=== PATIENT | male | born 1985 | race African-American/Black ===

== ENCOUNTER 2020-04-10 00:38 | Day surgery (SDC) | payer OTHER, SELFPAY ==
[2019-08-29 16:21] VITALS: BMI 33.6
--- NOTE | 2019-09-04 17:11 | HP_ITS ---
DATE OF SERVICE: HISTORY: A 34-year-old is here for followup on his thyroid. He is a prisoner. He has a multinodular goiter, left greater than right. PHYSICAL EXAMINATION: HEENT: He has a large goiter, substernal extension to the thyroid gland, significant mass effect on the left lateral posterior aspect of the trachea. CHEST: Clear. HEART: Without murmurs. ABDOMEN: Soft. EXTREMITIES: Negative. PLAN: Thyroidectomy, left greater than right. D I MT: [facility]
--- NOTE | 2020-03-06 06:23 | PM.HPGS ---
History of Present Illness History of Present Illness Consent: Risks, benefits, and alternatives have been discussed and questions answered. Patient agrees to proceed with procedure. Chief complaint: Left Thyroid Mass Narrative: Karson Ma is a 34 year old male Review of Systems Review of Systems: Narrative: Patient has a thyroid goiter which needs to be excised easily explain all the risks pros and cons of the procedure All systems reviewed & are unremarkable except as noted in HPI and below ENT: Comments: Large thyroid goiter Meds Home Medications and Allergies Home Medications Medication Instructions Recorded Confirmed Type hydrochlorothiazide 25 mg PO DAILY 08/29/19 08/29/19 History lisinopril 20 mg PO DAILY 08/29/19 08/29/19 History timolol 1 drp LEFTEYE BID 08/29/19 08/29/19 History Allergies Allergy/AdvReac Type Severity Reaction Status Date / Time Sulfa (Sulfonamide Allergy Verified 08/29/19 16:23 Antibiotics) Assessment and Plan Additional Plan Plan is to remove the left thyroid he has been this plane all risks regarding her current laryngeal nerve weakness voice change hemorrhage in infection left thyroid goiter excision
--- NOTE | 2020-04-08 06:39 | PM.HPGS ---
History of Present Illness History of Present Illness Consent: Risks, benefits, and alternatives have been discussed and questions answered. Patient agrees to proceed with procedure. Chief complaint: Left Thyroid Mass Narrative: Karson Ma is a 34 year old male he has a large thyroid nodule left side admitted for elective excision he has been explained the risks regarding vocal change recurrent laryngeal nerve weakness Review of Systems Review of Systems: All systems reviewed & are unremarkable except as noted in HPI and below Meds Home Medications and Allergies Home Medications Medication Instructions Recorded Confirmed Type hydrochlorothiazide 25 mg PO DAILY 08/29/19 03/31/20 History lisinopril 20 mg PO DAILY 08/29/19 03/31/20 History timolol 1 drp LEFTEYE BID 08/29/19 03/31/20 History Allergies Allergy/AdvReac Type Severity Reaction Status Date / Time Sulfa (Sulfonamide Allergy Unknown Verified 04/01/20 09:26 Antibiotics) Assessment and Plan Additional Plan Plan is to do a left thyroidectomy
[2020-04-10] VITALS (8 sets, daily range): BP systolic 130–163; BP diastolic 61–93; PULSE 56–73; RESP 10–16; TEMP 36.1–36.3; O2SAT 96–100
--- NOTE | 2020-04-10 06:03 | WPDHPUPDATE1 ---
History and Physical Update Update Date/Time: 04/10/20 06:03 History and Physical has been reviewed, including an updated exam of the patient. There are NO changes in the patient's condition. Risks, benefits, and alternatives have been discussed and questions answered. Patient agrees to proceed with procedure.
[2020-04-10] MEDS: ACETAMINOPHEN 500 MG TABLET 1000 MG PO (08:00)
[2020-04-10] MEDS: LACTATED RINGERS 1,000 ML 30 ML IV CONT ×2 (08:00→10:08)
--- NOTE | 2020-04-10 08:13 | P.PNAN_ITS ---
Anes - Initial Pre Proc Eval Procedure: Operation Date: 09/06/19 10:30 Proposed Procedures p Left Thyroidectomy(Left) - Berry Sandoval MD Operation Date: 04/10/20 10:00 Proposed Procedures p Left Thyroidectomy - Berry Sandoval MD Date/Time: 04/10/20 08:13 Surgeon: Berry Sandoval MD Pre Op Diagnosis: Left Thyroid Mass Patient Data Age: 34 Gender: M Height: 6 ft Weight: 115 kg Allergies Allergy/AdvReac Type Severity Reaction Status Date / Time Sulfa (Sulfonamide Allergy Unknown Verified 04/01/20 09:26 Antibiotics) Home Medications Medication Instructions Recorded Confirmed Type hydrochlorothiazide 25 mg PO DAILY 08/29/19 03/31/20 History lisinopril 20 mg PO DAILY 08/29/19 03/31/20 History timolol 1 drp LEFTEYE BID 08/29/19 03/31/20 History Patient hx anesthesia problems: none Family hx anesthesia problems: none [facility] Past Medical History Medical History (Updated 04/10/20 @ 08:13 by Betito Hernández MD) HTN (hypertension) Overweight Surgical History Surgical History (Updated 04/10/20 @ 08:14 by Betito Hernández MD) H/O wrist surgery Anes - Eval Final PreProcedure Day of Procedure 04/10/20 08:13 Patient weight: overweight Heart: regular rate and rhythm Lungs: clear to auscultation Airway: Mallampati scale class II Neurological: alert and oriented Last oral intake: >/= 8 hours ASA classification: II Emergent: no Anesthetic plan: proceed Anesthesia type and monitoring: general ETT and standard monitoring Informed Consent: The patient's anesthetic plan and its attendant risks and benefits were discussed with the patient/family/POA. Questions were solicited and answers provided to the satisfaction of the patient/family/POA.
[2020-04-10] MEDS: LIDO 1%/EPINEPHRINE 1:100,000 20 ML VIAL 3 ML INFILTRATE (08:31)
[2020-04-10] MEDS: ceFAZolin 2 GM/D5W 50 ML 2 GM/50 ML BAG IVPB (08:31)
--- NOTE | 2020-04-10 10:10 | PM.PROC ---
Procedure Note - Detailed Date of procedure: 04/10/20 Pre-op diagnosis: Left Thyroid Mass Large left thyroid mass Post-op diagnosis: same Procedure performed: Thyroidectomy Description of procedure: Patient prepped and draped usual fashion duction general anesthesia a low collar incision was made and subplatysmal flaps elevated midline strap muscle divided the [] thyroid was identified a large cyst was identified in the [] thyroid lobe with the the ligature of the superior mid middle middle pedicles were removed the isthmus was divided the parathyroid was identified and left undisturbed the recurrent laryngeal nerve was identified hematuria placed for hemostasis and closed in layers with chromic and Monocryl Anesthesia: GLMA and GETA Surgeon: Berry Sandoval MD Estimated blood loss (mL): 10 Drains: No Packing: No Pathology: yes Complications: No immediate complications Condition: stable Disposition: PACU Findings: Markedly enlarged left thyroid multinodular
[2020-04-10] MEDS: ONDANSETRON INJ 4 MG/2 ML VIAL IV PUSH (10:51)
--- NOTE | 2020-04-10 11:33 | SUR.PHASEII ---
DR BEACH OFFICE IS HANDLING PAIN MEDICATION. HIS OFFICE TOLD ME THAT DR LEWIS HIMSELF CALLED IN TYLENOL 3 TO [facility].
== END 2020-04-10 12:10 | disposition home or self-care (01) ==
PROVIDERS: Visit Provider Otolaryngology
PROC: (CPT 60210; principal; 2019-09-06 10:30)
DX: E04.2 Nontoxic multinodular goiter (principal); I10 Essential (primary) hypertension
CPT/HCPCS: 60210; 88307; A9270; J0330; J0690; J1100; J2250; J2405; J2704; J3010; J7120